=== PATIENT | male | born 1950 | race Caucasian/White ===

== ENCOUNTER 2024-01-11 04:10 | Emergency (ER) | payer MEDICARE ==
[~2024-01-11] VITALS: Ht 177.8 cm; Wt 77.1 kg
[2024-01-11 04:17] VITALS: BP 169/84; PULSE 85; RESP 18; TEMP 97.4; O2SAT 94
[2024-01-11 04:47] VITALS: O2SAT 94
[2024-01-11] MEDS: KETOROLAC 60 MG/2 ML VIAL IM ONE (05:18)
[2024-01-11 06:11] LABS: BASOPHILS % (AUTO) 0.3 % (0.0-2.0); EOSINOPHILS # (AUTO) 0.1 K/uL (0-0.4); EOSINOPHILS % (AUTO) 0.8 % (0.0-4.0); HEMATOCRIT 40.7 % (36-52); HEMOGLOBIN 15.1 g/dL (12.0-18.0); LYMPHOCYTES # (AUTO) 0.9 K/uL (2.0-11.5); LYMPHOCYTES % (AUTO) 11.9 % (20.5-51.1); MEAN CORPUSCULAR HEMOGLOBIN 33 pg (27-31); MEAN CORPUSCULAR HGB CONC 37 g/dL (33-37); MEAN CORPUSCULAR VOLUME 87.4 fL (80-94); MONOCYTES # (AUTO) 0.5 K/uL (0.8-1.0); NEUTROPHILS # (AUTO) 6.4 K/uL (1.8-7.7); PLATELET COUNT (AUTO) 181 K/uL (140-450); RED BLOOD CELL COUNT(AUTO) 4.66 MIL/uL (4.20-6.10); RED CELL DISTRIBUTION WIDTH 13.7 % (11.6-13.7); WHITE BLOOD COUNT (AUTO) 7.9 K/uL (4.8-10.8)
[2024-01-11 06:41] LABS: ANION GAP 18.4 (8-16); CALCIUM 7.6 mg/dL (8.5-10.1); CARBON DIOXIDE 21.3 mmol/L (21-32); CHLORIDE 103 mmol/L (98-107); GLUCOSE 138 mg/dL (74-106); POTASSIUM 3.7 mmol/L (3.5-5.1); UREA NITROGEN, BLOOD 23 mg/dL (7-18)
[2024-01-11 06:53] LABS: CREATININE 1.3 mg/dL (0.6-1.3)
[2024-01-11 06:54] LABS: SODIUM SERUM 139 mmol/L (136-145)
[2024-01-11] MEDS: levETIRAcetam 1,000 MG in NACL 0.9% 100 ML IV ONE (07:42)
[2024-01-11 08:13] VITALS: BP 121/74; PULSE 79; RESP 12; TEMP 98.6; O2SAT 96
[2024-01-11 13:36] LABS: TOTAL BILIRUBIN 0.2 mg/dL (0.0-1.0)
[2024-01-11 13:37] LABS: ALANINE AMINOTRANSFERASE 19 U/L (12-78); ALBUMIN 4.2 g/dL (3.4-5.0); ALKALINE PHOSPHATASE 58 U/L (50-136); ASPARTATE AMINOTRANSFERASE 35 U/L (15-37); BILIRUBIN,DIRECT < 0.2 mg/dL (0.0-0.3); TOTAL PROTEIN, SERUM 6.4 g/dL (6.4-8.2)
[2024-01-11 13:38] LABS: INR 0.9 (0.8-1.2); PROTHROMBIN TIME 11.4 secs (10.8-13.4)
[2024-01-11 13:39] LABS: PARTIAL THROMBOPLASTIN TIME 33.9 secs (22-35.6)
== END 2024-01-11 08:12 | disposition short-term general hospital (02) ==
LOC: MED 04:10
DX: S06.6X0A Traumatic subarachnoid hemorrhage without loss of consciousness, initial encounter (principal); W06.XXXA Fall from bed, initial encounter; Y93.89 Activity, other specified; Y92.89 Other specified places as the place of occurrence of the external cause; Y99.8 Other external cause status
CPT/HCPCS: 36415; 70450; 80048; 80076; 81002; 82948; 85025; 85610; 85730; 93005; 96365; 96372; 99285; J1885; J1953